=== PATIENT | male | born 1990 | race Asian ===

== ENCOUNTER 2018-01-08 13:14 | Emergency (ER) | payer BC ==
[~2018-01-08] VITALS: Ht 167.6 cm; Wt 72.6 kg
--- NOTE | 2018-01-08 13:35 | NUR ---
PATIENT WAS MSE BY DR VERDUGO IN ROOM 02B.
--- NOTE | 2018-01-08 13:36 | NUR ---
Patient discharged to home in stable conditon. Written and verbal after care instructions given. Patient verbalizes understanding of instructions.
== END 2018-01-08 13:39 | disposition home or self-care (01) ==
LOC: ER 13:24
DX: L03.114 Cellulitis of left upper limb (principal)
CPT/HCPCS: 99283; A4663